=== PATIENT | female | born 1980 | race Caucasian/White ===

== ENCOUNTER → 2023-02-23 09:11 | Outpatient (CLI) | payer BC, SELFPAY ==
--- NOTE | ~2023-02-23 | US_ITS ---
Limited Abdominal Sonogram: Real-time sonographic imaging of the right upper quadrant was performed. Clinical History: Abdominal pain Findings: The liver appears normal with no evidence of bile duct dilatation. There is a 3.0 x 1.5 x 1.5 cm hyperechoic hepatic mass. Main portal vein demonstrates normal direction of flow. The gallblad federico is well distended, and appears normal with no evidence of gallstone or wall thickening. The commo n bile duct measures 3 mm. The visualized pancreas, aorta, and IVC are unremarkable. Impression: 3.0 x 1.5 x 1.5 cm hyperechoic hepatic lesion, most likely hemangioma. Confirmation with MR imaging c an be performed as indicated. Reviewed, dictated and finalized at location . BASE CONSULTANT Impression: 3.0 x 1.5 x 1.5 cm hyperechoic hepatic lesion, most likely hemangioma. Confirma tion with MR imaging can be performed as indicated.
== END ==
PROVIDERS: PCP Emergency Medicine; Visit Provider Emergency Medicine
DX: R10.9 Unspecified abdominal pain (principal)
CPT/HCPCS: 76705

== ENCOUNTER 2023-02-23 09:42 | Outpatient (CLI) | payer BC, SELFPAY ==
[2023-02-23 11:57] LABS: Basophils Absolute Auto 0.1 K/mm3 (0.0-0.1); Basophils Percent Auto 0.7 % (0.2-1.2); Eosinophils Absolute Auto 0.1 K/mm3 (0-0.3); Eosinophils Percent Auto 1.2 % (0-4.4); Hematocrit 39.2 % (37.0-47.0); Hemoglobin 13.1 g/dL (12.0-15.0); Immature Granulocyte Absolute 0.01 K/mm3 (0.00-0.031); Immature Granulocyte Percent A 0.1 % (0-0.5); Lymphocytes Absolute Auto 1.63 K/mm3 (0.9-3.2); Lymphocytes Percent Auto 18.2 % (18.3-44.2); Mean Corpuscular HGB Conc 33.4 g/dl (32-36); Mean Corpuscular Hemoglobin 32.2 pg (26-34); Mean Corpuscular Volume 96.3 fl (80-100); Mean Platelet Volume 9.4 fl (7.4-10.4); Monocytes Absolute Auto 0.6 K/mm3 (0.1-0.6); Monocytes Percent Auto 7.1 % (2.6-8.5); Neutrophils Absolute Auto 6.5 K/mm3 (1.3-6.7); Neutrophils Percent Auto 72.7 % (45.5-73.1); Platelet Count Result 420 k/mm3 (150-375); Red Blood Count 4.07 M/mm3 (4.2-5.4); Red Cell Distribution Width 12.1 % (11.5-14.5)
[2023-02-23 12:23] LABS: Alanine Aminotransferase 17 U/L (6-35); Albumin Level 4.3 g/dL (3.5-5.1); Alkaline Phosphatase 89 U/L (38-126); Anion Gap 10 mmol/L (8-16); Aspartate Amino Transferase 30 U/L (14-36); Bilirubin,Total 0.5 mg/dL (0.2-1.3); Blood Urea Nitrogen 10 mg/dL (7-17); Carbon Dioxide 25 mmol/L (22-30); Chloride 103 mmol/L (98-107); Cholesterol 209 mg/dL (0-200); Estimated Glomerular Filt Rate > 60; Glucose 99 mg/dL (65-110); HDL Direct 87 mg/dL; Sodium 138 mmol/L (137-145); Triglycerides 128 mg/dL (<150)
[2023-02-23 12:35] LABS: LDL Cholesterol Direct 87 mg/dL
[2023-02-23 12:59] LABS: Hemoglobin A1C 4.7 % (<5.7)
== END 2023-02-23 09:43 | disposition home or self-care (01) ==
LOC: ANHGOSHLAB 09:43
PROVIDERS: PCP Emergency Medicine; Visit Provider Emergency Medicine
DX: R10.9 Unspecified abdominal pain (principal); Z13.220 Encounter for screening for lipoid disorders; Z13.1 Encounter for screening for diabetes mellitus
CPT/HCPCS: 36415; 80053; 80061; 83036; 85025

== ENCOUNTER 2024-10-09 13:52 | Outpatient (CLI) | payer BC, SELFPAY ==
--- NOTE | ~2024-10-09 | MM_ITS ---
EXAMINATION: MM screening heriberto BI w andi HISTORY: Screening mammogram TECHNIQUE: Craniocaudal and mediolateral oblique 3-D tomosynthesis images were obtained and synthetic 2-D images were generated. CAD analysis was submitted and interpreted. COMPARISON: No prior mammogram is available for comparison at this institution. BREAST PARENCHYMAL COMPOSITION:Dense: The breasts are heterogeneously dense, which may obscure small masses. FINDINGS: Asymmetry present the posterior, inner left breast. No distinct parenchymal abnormality of the right breast seen. No suspicious microcalcifications. Benign lymph node present at the upper, out er left breast. IMPRESSION: Posterior inner left breast asymmetry. Spot compression views and possibly ultrasound are recommended for further evaluation. BI-RADS Category 0: Incomplete: Needs additional imaging evaluation. Reviewed, dictated and finalized at [facility]. IMPRESSION: Posterior inner left breast asymmetry. Spot compression views and possibly ultr asound are recommended for further evaluation. BI-RADS Category 0: Incomplete: Needs additional imaging evaluation.
== END 2024-10-09 13:53 | disposition home or self-care (01) ==
LOC: ANHIMG 13:54
PROVIDERS: PCP Nurse Practitioner Family; Visit Provider Nurse Practitioner Family
DX: Z12.31 Encounter for screening mammogram for malignant neoplasm of breast (principal); R92.8 Other abnormal and inconclusive findings on diagnostic imaging of breast
CPT/HCPCS: 77063; 77067

== ENCOUNTER 2024-11-08 10:14 | Outpatient (CLI) | payer BC, SELFPAY ==
--- NOTE | ~2024-11-08 | MM_ITS ---
EXAMINATION: MM diagnostic heriberto RT w andi INDICATION: 44-year old female; BI-RADS 0, callback to evaluate Right breast asymmetry COMPARISON: 10/09/2024 TECHNIQUE: Digital breast tomosynthesis True lateral view and spot compression MLO views of Right allyson ast were obtained with computer-aided detection to assist in interpretation of the study. FINDINGS: The breasts are heterogeneously dense, which may obscure small masses. The asymmetry seen in the Superior Right breast on the screening mammogram does not persist with rich tional views, compatible with normal overlapping tissue.. IMPRESSION: Right breast asymmetry represents superimposition of fibroglandular tissue. No further investigation necessary. RECOMMENDATION: Annual screening mammography in 12 months BI-RADS 2, BENIGN Reviewed, dictated and finalized at location B.
--- OUTSIDE RECORDS SUMMARY | 2024-11-08 10:23 | XMS_ITS | Clinical Summary ---
Author Organization [address] Address [address] [place] [id number] Care Team Providers Care Orthopedic Coder Name Role Phone James Lawson MD Primary Care Provider [phone] Allergies No known active allergies Medications Tri-Sprintec, 28, 0.18/0.215/0.25 mg-35 mcg (28) per tablet Take 1 tablet by mouth daily 04/04/2022 Active Active Problems No known active problems Social History Tobacco Use Types Packs/Day Years Used Date Smoking Tobacco: Never Tobacco Cessation:Counseling Given: Not Answered Comments Unknown Sex and Gender Information Value Date Recorded Sex Assigned at Not on file Legal Sex Female 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 Gender Identity Not on file Sexual Orientation Not on file Obstetrics History Last Filed Vital Signs Vital Sign Reading Time Taken Comments Blood Pressure 146/88 03/27/2024 9:10 AM RAKE OPERATOR Pulse 112 03/27/2024 9:10 AM RAKE OPERATOR Temperature 36.8 C (98.2 F) 03/27/2024 9:10 AM RAKE OPERATOR Respiratory Rate 18 03/27/2024 9:10 AM RAKE OPERATOR Oxygen Saturation 98% 03/27/2024 9:10 AM RAKE OPERATOR Inhaled Oxygen Concentration - - Weight 75 kg (165 lb 6.4 oz) 03/27/2024 9:10 AM RAKE OPERATOR Height 170.2 cm (5' 7.01) 03/27/2024 9:10 AM CS T Body Mass Index 25.9 03/27/2024 9:10 AM RAKE OPERATOR Plan of Treatment Health Maintenance Due Date Last Done Comments Breast Cancer Screening-Mammogram 1981 Cervical Cancer Screening 1981 Depression Screening 1981 Hepatitis C Screening 1981 Varicella Vaccines (1 of 2 - 13+ 2-dose series) 1994 Hepatitis B Screening 1999 Regular Well Visit/Exam 18-64 1999 HPV Vaccines (1 - 3-dose SCDM series) 02/05/2008 Covid-19 Vaccine (3 - 2023- season) 2023 06/03/2020, 05/05/2020 Influenza Vaccine (#1) 2024 , 01/24/2019, 01/17/2018, Additional history exists DTaP/Tdap/Td Vaccine (2 - Td or Tdap) 01/08/2032 01/07/2022 Pneumococcal vaccine <65 Aged Out No longer eligible based on patient's age to complete this topic [facility] Care Teams Orthopedic Coder Relationship Specialty Start Date End Date James Lawson MD PCP - General Family Medicine 06/01/22
--- OUTSIDE RECORDS SUMMARY | 2024-11-08 10:23 | XMS_ITS | Referral Summary ---
Author Organization [address] Address [address] [place] [id number] Care Team Providers Care Hand Candy Cutter Name Role Phone James Lawson MD Primary Care Provider [phone] Allergies No known active allergies Medications Tri-Sprintec, [...] on file Legal Sex Female 10:31 AM DRILL HAND Gender Identity Not on file Sexual Orientation Not on file Last Filed Vital Signs Vital Sign Reading Time Taken Comments Blood Pressure 146/88 03/27/2024 9:10 AM DRILL HAND Pulse 112 03/27/2024 9:10 AM DRILL HAND Temperature 36.8 C (98.2 F) 03/27/2024 9:10 AM DRILL HAND Respiratory Rate 18 03/27/2024 9:10 AM DRILL HAND Oxygen Saturation 98% 03/27/2024 9:10 AM DRILL HAND Inhaled Oxygen Concentration - - Weight 75 kg (165 lb 6.4 oz) 03/27/2024 9:10 AM DRILL HAND Height 170.2 cm (5' 7.01) 03/27/2024 9:10 AM CS T Body Mass Index 25.9 03/27/2024 9:10 AM DRILL HAND Plan of Treatment Not on file Insurance [employer] CHO[employer] Care Teams Hand Candy Cutter Relationship Specialty Start Date End Date James Lawson MD PCP - General Family Medicine 06/01/22
== END 2024-11-08 10:15 | disposition home or self-care (01) ==
PROVIDERS: PCP Nurse Practitioner Family; Visit Provider Nurse Practitioner Family
DX: R92.8 Other abnormal and inconclusive findings on diagnostic imaging of breast (principal)
CPT/HCPCS: 77061; 77065; G0279